=== PATIENT | male | born 1980 | race Caucasian/White ===

== ENCOUNTER 2017-08-19 11:26 | Emergency (ER) | payer OTHER ==
[~2017-08-19] VITALS: Ht 188 cm; Wt 86.2 kg
[2017-08-19 14:37] LABS: BASOPHIL (%) 0.9 % (0-1); BASOPHIL COUNT 0.1 K/uL (0-0.1); EOSINOPHIL (%) 4.6 % (0-5); EOSINOPHIL COUNT 0.3 K/uL (0-0.3); HEMATOCRIT 41.7 % (38.0-50.0); HEMOGLOBIN 13.9 G/DL (12.5-16.6); IMMATURE GRANULOCYTE (%) 0.6 % (0.0-0.7); LYMPHOCYTE COUNT 2.3 K/uL (1.0-2.8); MCH 29.6 PG (29.0-34.0); MCHC 33.3 G/DL (30.0-36.0); MCV 88.7 FL (86-99); MONOCYTE (%) 9.5 % (3-12); MONOCYTE COUNT 0.6 K/uL (0-0.8); NEUTROPHIL (%) 49.4 % (45-76); NEUTROPHIL COUNT 3.2 K/uL (1.8-6.4); PLATELET COUNT 296 K/uL (156-360); RBC DIS.WIDTH-CV 15.4 % (11.8-14.6); RBC DIS.WIDTH-SD 50.4 % (39-53); WHITE BLOOD COUNT 6.5 K/uL (4.1-10.2)
[2017-08-19 14:44] LABS: CHLORIDE 103 mEq/L (99-109); POTASSIUM 4.8 mEq/L (3.7-5.4); SODIUM 140 mEq/L (136-147)
[2017-08-19 14:46] LABS: GLUCOSE 94 mg/dL (70-99)
[2017-08-19 14:50] LABS: GFR ESTIMATE (CALCULATED) > 59 mL/min/ (58.99-99999)
[2017-08-19 14:51] LABS: UREA NITROGEN (BUN) 15 mg/dL (9-23)
[2017-08-19] MEDS ORDERED: CLEOCIN300 MG PO (15:38)
[2017-08-19] MEDS ORDERED: MOTRIN600 MG PO (15:46)
[2017-08-19 15:48] VITALS: BP 128/84
== END 2017-08-19 15:49 | disposition home or self-care (01) ==
LOC: EDBD 11:26 → EME 11:26
PROVIDERS: Emergency Medicine
DX: L03.115 Cellulitis of right lower limb (principal); M25.511 Pain in right shoulder; B19.20 Unspecified viral hepatitis C without hepatic coma; F17.200 Nicotine dependence, unspecified, uncomplicated
CPT/HCPCS: 73030; 80048; 83605; 85025; 99281; 99284